=== PATIENT | female | born 1985 | race Caucasian/White ===

== ENCOUNTER 2017-06-10 13:55 | Emergency (ER) | payer BC ==
[2017-06-10] MEDS ORDERED: Sodium Chloride 0.9% 10 ML Syringe FLUSH PRN (14:22)
[2017-06-10] MEDS ORDERED: Sodium Chloride 0.9% 2.5 ML Syringe FLUSH PRN (14:22)
[2017-06-10] MEDS ORDERED: cefTRIAXone 1,000 MG in Lidocaine 1% 4 ML IM ONE (14:23)
--- NOTE | 2017-06-10 14:26 | EDM.PDOC ---
ED HPI GENERAL MEDICAL PROBLEM - General Chief Complaint: General Stated Complaint: FEET SWOLLEN Time Seen by Provider: 06/10/17 14:18 Source of Information: Reports: Patient History Limitations: Reports: No Limitations - History of Present Illness INITIAL COMMENTS - FREE TEXT/NARRATIVE: HISTORY AND PHYSICAL: []Obese 32-year-old female presenting with edema to her feet has worsened the last 3 weeks History of Present Illness: []Patient has history of psoriasis Review of Systems: As per history of present illness and below otherwise all systems reviewed and negative. Past medical history: As per history of present illness and as reviewed below otherwise noncontributory. Surgical history: As per history of present illness and as reviewed below otherwise noncontributory. Social history: No reported history of drug or alcohol abuse. Family history: As per history of present illness and as reviewed below otherwise noncontributory. Physical exam: Alert and oriented female answering questions in full sentences slightly breathy sounds HEENT: Atraumatic, normocehpalic, pupils reactive, negative for conjunctival pallor or scleral icterus, mucous membranes moist, throat clear, neck supple, nontender, trachea midline. Lungs: Wheezing on auscultation, breath sounds equal bilaterally, chest non tender. Heart: S1S2, regular, negative for clicks, rubs, or JVD. Abdomen: Soft, mildly distended, nontender. Tympanic on percussion Negative for masses or hepatossplenmegaly. Negative for costovertebral tenderness. Pelvis: Stable nontender. Genitourinary: Deferred. Rectal: Deferred Extremities: Atraumatic, negative for cords or calf pain. Multiple patchy scaly psoriasis. skin is erythematous to lower legs ankles to mid calf. 2+ edema pitting legs and feet. All range of motion present Neurovascular unremarkable. Neuro: Awake, alert, oriented. Cranial nerves II through XII unremarkable. Cerebellum unremarkable. Motor and sensory unremarkable throughout. Exam nonfocal. Patient tolerated all procedures well. Advised to establish with primary care Her obesity makes her at increased risk for diabetes and would recommend that she lose at least 20 pounds (Weight Watchers) Diagnostics: []CBC CMP UA urine culture Therapeutics: [Rocephin IV] Impression: []Cellulitis bilateral lower legs Plan: []Discharged to home Cephalexin 500 3 times a day Lasix 20 mg twice a day Follow-up with primary care Referral to the residency clinic Definitive disposition and diagnosis as appropriate pending reevaluation and review of above. Onset: Gradual Duration: Week(s):, Getting Worse Location: Reports: Lower Extremity, Left, Lower Extremity, Right legs/back Pain Score (Numeric/FACES): 7 - Related Data Allergies Allergy/AdvReac Type Severity Reaction Status Date / Time egg Allergy Hives Verified 06/10/17 14:08 Sulfa (Sulfonamide Allergy Hives Verified 06/10/17 14:08 Antibiotics) Home Meds: Home Meds Cephalexin [IJD: Cephalexin] 500 mg PO .EVERY 8 HOURS #30 cap 06/10/17 [Rx] Furosemide [Lasix] 20 mg PO BID #20 tab 06/10/17 [Rx] Past Medical History Genitourinary History: Reports: Other (See Below) Other Genitourinary History: Interstitial Cystitis Hematologic History: Reports: Other (See Below) Other Hematologic History: TTP Dermatologic History: Reports: Psoriasis - Infectious Disease History Infectious Disease History: Reports: Chicken Pox - Past Surgical History HEENT Surgical History: Reports: Adenoidectomy, Naso-Sinus Surgery, Tonsillectomy Social & Family History - Family History Family Medical History: Noncontributory - Tobacco Use Smoking Status *Q: Current Every Day Smoker Years of Tobacco use: 15 Packs/Tins Daily: 0.2 - Caffeine Use Caffeine Use: Reports: Soda - Recreational Drug Use Recreational Drug Use: No ED ROS GENERAL - Review of Systems Review Of Systems: ROS reveals no pertinent complaints other than HPI. ED EXAM, GENERAL - Physical Exam Exam: See Below Course - Vital Signs Last Recorded V/S: Last Vital Signs Temp 36.0 C 06/10/17 14:04 Pulse 116 H 06/10/17 14:04 Resp 18 06/10/17 14:04 BP 155/109 H 06/10/17 14:04 Pulse Ox 92 L 06/10/17 14:04 - Orders/Labs/Meds Orders: Active Orders 24 hr Category Date Time Status Chest 2V [CR] Stat Exams 06/10/17 14:23 Taken CULTURE URINE [RM] Stat Lab 06/10/17 14:39 Ordered UA W/MICROSCOPIC [URIN] Stat Lab 06/10/17 14:39 Ordered Sodium Chloride 0.9% [Saline Flush] Med 06/10/17 14:22 Active 10 ml FLUSH ASDIRECTED PRN Sodium Chloride 0.9% [Saline Flush] Med 06/10/17 14:22 Active 2.5 ml FLUSH ASDIRECTED PRN Saline Lock Insert [OM.PC] Stat Oth 06/10/17 14:22 Ordered Medication Orders Sodium Chloride (Saline Flush) 10 ml FLUSH ASDIRECTED PRN PRN Reason: Keep Vein Open Sodium Chloride (Saline Flush) 2.5 ml FLUSH ASDIRECTED PRN PRN Reason: Keep Vein Open Labs: Laboratory Tests 06/10/17 06/10/17 06/10/17 Range/Units 14:30 14:30 14:39 WBC 8.20 (4.0-11.0) K/uL RBC 3.84 L (4.30-5.90) M/uL Hgb 12.1 (12.0-16.0) g/dL Hct 37.5 (36.0-46.0) % MCV 97.7 (80.0-98.0) fL MCH 31.5 (27.0-32.0) pg MCHC 32.3 (31.0-37.0) g/dL RDW Std Deviation 51.4 (28.0-62.0) fl RDW Coeff of Jono 14 (11.0-15.0) % Plt Count 168 (150-400) K/uL MPV 11.70 (7.40-12.00) fL Neut % (Auto) 70.6 (48.0-80.0) % Lymph % (Auto) 19.0 (16.0-40.0) % [place] % (Auto) 8.3 (0.0-15.0) % Eos % (Auto) 2.0 (0.0-7.0) % Baso % (Auto) 0.1 (0.0-1.5) % Neut # (Auto) 5.8 H (1.4-5.7) K/uL Lymph # (Auto) 1.6 (0.6-2.4) K/uL [place] # (Auto) 0.7 (0.0-0.8) K/uL Eos # (Auto) 0.2 (0.0-0.7) K/uL Baso # (Auto) 0.0 (0.0-0.1) K/uL Nucleated RBC % 0.0 /100WBC Nucleated RBCs # 0 K/uL Sodium 139 (136-145) mmol/L Potassium 3.7 (3.5-5.1) mmol/L Chloride 105 (98-107) mmol/L Carbon Dioxide 29.7 (21.0-32.0) mmol/L BUN 13 (7.0-18.0) mg/dL Creatinine 0.8 (0.6-1.0) mg/dL Est Cr Clr Drug Dosing 93.63 mL/min Estimated GFR (MDRD) > 60.0 ml/min Glucose 100 (74-106) mg/dL Calcium 8.8 (8.5-10.1) mg/dL Total Bilirubin 0.5 (0.2-1.0) mg/dL AST 246 H (15-37) IU/L ALT 228 H (14-63) IU/L Alkaline Phosphatase 92 (46-116) U/L Total Protein 7.6 (6.4-8.2) g/dL Albumin 3.1 L (3.4-5.0) g/dL Globulin 4.5 H (2.0-3.5) g/dL Albumin/Globulin Ratio 0.7 L (1.3-2.8) Urine Color YELLOW Urine Appearance CLEAR Urine pH 6.0 (5.0-8.0) Ur Specific [place] 1.025 (1.001-1.035) Urine Protein NEGATIVE (NEGATIVE) mg/dL Urine Glucose (UA) NEGATIVE (NEGATIVE) mg/dL Urine Ketones NEGATIVE (NEGATIVE) mg/dL Urine Occult Blood NEGATIVE (NEGATIVE) Urine Nitrite NEGATIVE (NEGATIVE) Urine Bilirubin SMALL H (NEGATIVE) Urine Ictotest NEGATIVE Urine Urobilinogen >=8.0 H (<2.0) EU/dL Ur Leukocyte Esterase NEGATIVE (NEGATIVE) Urine RBC 0-3 (0-2/HPF) Urine WBC 0-1 (0-5/HPF) Ur Epithelial Cells MODERATE (NONE-FEW) Calcium Oxalate Crystal MANY (NEGATIVE) Urine Bacteria FEW (NEGATIVE) Meds: Medications Generic Name Dose Route Start Last Admin Trade Name Freq PRN Reason Stop Dose Admin Sodium Chloride 10 ml 06/10/17 14:22 Saline Flush FLUSH ASDIRECTED PRN Keep Vein Open Sodium Chloride 2.5 ml 06/10/17 14:22 Saline Flush FLUSH ASDIRECTED PRN Keep Vein Open Discontinued Medications Generic Name Dose Route Start Last Admin Trade Name Freq PRN Reason Stop Dose Admin Ceftriaxone Sodium 1,000 mg/ 4 mls @ 4 mls/sec 06/10/17 14:23 06/10/17 14:45 Lidocaine HCl IM 06/10/17 14:24 4 mls/sec ONETIME ONE Administration Departure - Departure Time of Disposition: 15:48 Disposition: Home, Self-Care 01 Condition: Good Clinical Impression: Cellulitis of both lower extremities - Discharge Information Prescriptions: Cephalexin [IJD: Cephalexin] 500 mg PO .EVERY 8 HOURS #30 cap Furosemide [Lasix] 20 mg PO BID #20 tab Instructions: Cellulitis, Adult Referrals: PCP,None [Primary Care Provider] - Forms: ED Department Discharge Additional Instructions: The following information is given to patients seen in the emergency department who are being discharged to home. This information is to outline your options for follow-up care. We provide all patients seen in our emergency department with a follow-up referral. The need for follow-up, as well as the timing and circumstances, are variable depending upon the specifics of your emergency department visit. If you don't have a primary care physician on staff, we will provide you with a referral. We always advise you to contact your personal physician following an emergency department visit to inform them of the circumstance of the visit and for follow-up with them and/or the need for any referrals to a consulting specialist. The emergency department will also refer you to a specialist when appropriate. This referral assures that you have the opportunity for followup care with a specialist. All of these measure are taken in an effort to provide you with optimal care, which includes your followup. Under all circumstances we always encourage you to contact your private physician who remains a resource for coordinating your care. When calling for followup care, please make the office aware that this follow-up is from your recent emergency room visit. If for any reason you are refused follow-up, please contact the [facility] emergency department at and asked to speak to the emergency department charge nurse. He was found to have a skin infection to your lower legs Cephalexin 500 every 8 hours Lasix 20 mg twice daily morning and noon Follow-up with your primary care next week Establish at the residency clinic [facility] [address] [place] [id number] - My Orders Last 24 Hours: My Active Orders 06/10/17 14:22 Sodium Chloride 0.9% [Saline Flush] 10 ml FLUSH ASDIRECTED PRN Sodium Chloride 0.9% [Saline Flush] 2.5 ml FLUSH ASDIRECTED PRN Saline Lock Insert [OM.PC] Stat 06/10/17 14:23 Chest 2V [CR] Stat 06/10/17 14:39 CULTURE URINE [RM] Stat UA W/MICROSCOPIC [URIN] Stat - Assessment/Plan Last 24 Hours: My Active Orders 06/10/17 14:22 Sodium Chloride 0.9% [Saline Flush] 10 ml FLUSH ASDIRECTED PRN Sodium Chloride 0.9% [Saline Flush] 2.5 ml FLUSH ASDIRECTED PRN Saline Lock Insert [OM.PC] Stat 06/10/17 14:23 Chest 2V [CR] Stat 06/10/17 14:39 CULTURE URINE [RM] Stat UA W/MICROSCOPIC [URIN] Stat
[2017-06-10 14:58] LABS: CHLORIDE,CL 105 mmol/L (98-107); SODIUM,NA 139 mmol/L (136-145)
--- NOTE | 2017-06-12 11:36 | CR ---
EXAM DATE: 06/10/17 PATIENT'S AGE: 32 Patient: MARGARETTE GARZA Facility: [place], [place] Site . Site : 1985 Study: XRay Chest [id number]/[id number] 2:56:45 PM Ordering Physician: Doctor Dominguez Final Report: INDICATION: Pain. Shortness of breath. COMPARISON: None. FINDINGS: PA and lateral views of the chest were obtained. The cardiac silhouette and pulmonary vasculature are within normal limits. The lungs are clear bilaterally. IMPRESSION: No evidence of acute pulmonary disease. Dictated by Mateus Lyle MD @ 06/10/2017 3:01:33 PM Dictated by: Mateus Lyle MD @ 06/10/2017 15:04:59 (Electronic Signature) Report Signed by Proxy. [facility]
== END 2017-06-10 15:59 | disposition home or self-care (01) ==
LOC: MW.ED 13:55
DX: L03.116 Cellulitis of left lower limb (principal); L03.115 Cellulitis of right lower limb; F17.210 Nicotine dependence, cigarettes, uncomplicated; Z91.012 Allergy to eggs; Z88.2 Allergy status to sulfonamides
CPT/HCPCS: 36415; 71046; 80053; 81001; 85025; 87086; 96372; 99284; J0696; 99283